=== PATIENT | female | born 1975 | race Caucasian/White ===

== ENCOUNTER 2016-12-12 19:16 | Emergency (ER) | payer OTHER ==
[~2016-12-12] VITALS: Ht 162.6 cm; Wt 64.9 kg
[2016-12-12 19:22] VITALS: BP 104/71
--- NOTE | 2016-12-12 19:45 | ED HAND/WRIST INJURY COMPLAINT ---
History of Present Illness General Chief Complaint: General Adult Stated Complaint: PT WAS STUCK BY A NEEDLE Source: patient, old records Exam Limitations: no limitations Vital Signs & Intake/Output Vital Signs & Intake/Output Vital Signs Date Time Temp Pulse Resp B/P Pulse O2 O2 Flow FiO2 Ox Delivery Rate 12/12 1944 98 Room Air 12/12 1921 97.2 76 16 104/71 98 Room Air Reconcile Medications No Known Home Medications Triage Note: PT STATES THAT WHILE SUTURING IN ER SHE STUCK HER SELF WITH THE NEEDLE Triage Nurses Notes Reviewed? yes Occurred: just prior to arrival Duration: minute(s):, better Timing: recent history Injury Environment: work Severity: mild Pain/Injury Location: Left: 2nd finger. Context: needlestick Method of Injury: needlestick No Modifying Factors: none LMP (ages 10-50): unknown : No Patient currently breastfeeds: No HPI: Prior to admission while in the operating room while suturing the patient sustained needlestick injury on patient Ezra Alexandra [id number] to the left index finger. She denies fever chills nausea vomiting diarrhea abdominal pain chest pain shortness breath headache dysuria rash bleeding Past History Travel History Traveled to [place] past 21 day No Medical History Any Pertinent Medical History? none Neurological: NONE EENT: NONE Cardiovascular: NONE Respiratory: NONE Gastrointestinal: NONE Hepatic: NONE Renal: NONE Musculoskeletal: NONE Psychiatric: NONE Endocrine: NONE Blood Disorders: NONE Cancer(s): ovarian cancer [employer]/Reproductive: NONE Surgical History Surgical History: non-contributory Psychosocial History What is your primary language Frisian Tobacco Use: Never used ETOH Use: denies use Illicit Drug Use: denies illicit drug use Family History Hx Contributory? No Review of Systems Review of Systems Constitutional: Reports: no symptoms. EENTM: Reports: no symptoms. Respiratory: Reports: no symptoms. Cardiovascular: Reports: no symptoms. GI: Reports: no symptoms. Genitourinary: Reports: no symptoms. Musculoskeletal: Reports: no symptoms. Skin: Reports: see HPI. Neurological/Psychological: Reports: no symptoms. Hematologic/Endocrine: Reports: no symptoms. Immunologic/Allergic: Reports: no symptoms. All Other Systems: Reviewed and Negative Physical Exam Physical Exam General Appearance: well developed/nourished, no apparent distress, alert, awake , anxious Head: atraumatic, normal appearance Eyes: Bilateral: normal appearance, PERRL, EOMI. Ears, Nose, Throat: normal pharynx, normal ENT inspection, hearing grossly normal, moist mucus membranes Neck: normal inspection, supple, full range of motion, no midline tenderness Cardiovascular/Respiratory: normal breath sounds, normal peripheral pulses, regular rate/rhythm, no respiratory distress Back: normal inspection, normal range of motion Shoulder Left: normal range of motion, normal inspection Shoulder Right: normal range of motion, normal inspection Elbow Left: normal range of motion, normal inspection Elbow Right: normal range of motion, normal inspection Forearm Left: normal range of motion, normal inspection Forearm Right: normal range of motion, normal inspection Wrist Left: normal range of motion, normal inspection Wrist Right: normal range of motion, normal inspection Hand Left: normal inspection, normal range of motion Hand Right: normal inspection, normal range of motion Reflexes: 2+: bicep (R), bicep (L). Neurologic/Tendon: normal sensation, normal motor functions, normal tendon functions Skin: intact, normal color, warm/dry Lymphatic: no anterior cervical lianet Progress Differential Diagnosis: abscess, cellulitis Plan of Care: Orders Procedure Date/time Status HIV EXPOSURE/NEEDLESTICK 12/12 1942 Active HUMAN BETA HCG SCREEN 12/12 1942 Active HEPT C ANTIBODY 12/12 1942 Active HEPT B SURFACE ANTIBODY 12/12 1942 Active GAMMA GLUTAMYL TRANSFERASE 12/12 1942 Active COMPREHENSIVE METABOLIC PANEL 12/12 1942 Active CBC WITHOUT DIFFERENTIAL 12/12 1942 Complete TRNSFRASE ASPART AMINO 12/12 1942 Active TRNSFRAS ALANINE AMINO 12/12 1942 Active Laboratory Tests 12/12/16 2005: Anion Gap 10, Estimated GFR > 60, BUN/Creatinine Ratio 24.0, Glucose 75, Calcium 9.8, Total Bilirubin 0.5, GGT 12, AST 20, ALT 33, Alkaline Phosphatase 58, Total Protein 7.4, Albumin 4.5, Globulin 2.9, Albumin/Globulin Ratio 1.6, Total Beta HCG NEGATIVE, CBC w Diff NO MAN DIFF REQ, RBC 3.48 L, MCV 105.6 H, MCH 35.3 H , RDW 18.1 H, MPV 7.6, Gran % 64.0, Lymphocytes % 26.1, Monocytes % 8.2, Eosinophils % 1.1, Basophils % 0.6, Absolute Granulocytes 4.0, Absolute Lymphocytes 1.6, Absolute Monocytes 0.5, Absolute Eosinophils 0.1, Absolute Basophils 0, PUBS MCHC 33.5, Hep Bs Antibody Pending, Hepatitis C Antibody Pending, HIV 1&2 Antibody NONREACTIVE Departure Departure Time of Disposition: 1943 Disposition: HOME OR SELF CARE Condition: Stable Clinical Impression Primary Impression: Needle stick injury of finger of left hand Qualifiers: Encounter type: initial encounter Qualified Codes: S61.239A - Puncture wound without foreign body of unspecified finger without damage to nail , initial encounter; W27.3XXA - Contact with needle (sewing), initial encounter Referrals: PATIENT HAS NO PRIMARY CARE DR (PCP/Family) Departure 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
[2016-12-12 20:14] LABS: ABSOLUTE BASOPHIL COUNT 0 /CUMM (0.0-0.2); ABSOLUTE EOSINOPHIL COUNT 0.1 /CUMM (0.0-0.7); ABSOLUTE LYMPH COUNT 1.6 /CUMM (1.2-3.4); ABSOLUTE MONOCYTE COUNT 0.5 /CUMM (0.10-0.60); BASOPHIL % 0.6 % (0.0-2.0); EOSINOPHIL % 1.1 % (0-5); HEMATOCRIT 36.7 % (37-47); MEAN CORPUSCULAR HGB 35.3 PG (27.0-31.0); MEAN CORPUSCULAR HGB CONC 33.5 G/DL (33.0-37.0); MEAN CORPUSCULAR VOLUME 105.6 FL (81.0-99.0); MEAN PLATELET VOLUME 7.6 FL (7.4-10.4); PLATELET COUNT 230 /CUMM (130-400); RBC DISTRIBUTION WIDTH 18.1 % (11.5-14.5); RED BLOOD CELL CT 3.48 /CUMM (4.20-5.40); WHITE BLOOD CELL COUNT 6.3 /CUMM (4.8-10.8)
== END 2016-12-12 21:58 ==
LOC: ERH 19:16
PROVIDERS: Emergency Medicine
DX: S61.231A Puncture wound without foreign body of left index finger without damage to nail, initial encounter (principal); W46.1XXA Contact with contaminated hypodermic needle, initial encounter
CPT/HCPCS: 86803; 87389